=== PATIENT | male | born 1970 | race Caucasian/White ===

== ENCOUNTER → 2020-10-20 | Outpatient (CLI) | payer BC, OTHER ==
[~2020-10-20] MED LIST: CIPRO250 MG PO
== END ==
LOC: LAB 10:32
DX: N18.6 End stage renal disease (principal); Z76.82 Awaiting organ transplant status
CPT/HCPCS: 36415

== ENCOUNTER → 2020-12-22 | Outpatient (CLI) | payer OTHER | LOC: LAB 11:22 | DX: Z01.812 Encounter for preprocedural laboratory examination (principal) | CPT/HCPCS: 36415 ==

== ENCOUNTER → 2022-03-20 | Outpatient (CLI) | payer OTHER | LOC: LAB 15:54 | DX: B34.9 Viral infection, unspecified (principal) | CPT/HCPCS: 36415 ==